=== PATIENT | male | born 1950 | race Caucasian/White ===

== ENCOUNTER 2016-07-31 09:53 | Inpatient (IN) | payer MEDICARE, OTHER ==
[~2016-07-31] VITALS: Ht 170.2 cm; Wt 86.6 kg
[2016-07-31] VITALS (7 sets, daily range): BP systolic 111–139; BP diastolic 68–82; PULSE 60–85; RESP 16–20; TEMP 96.1–98; O2SAT 96–100
[~2016-07-31 09:53] MED LIST: CYMB30CA PO; LEVE500 PO; NAPR220T95 PO
[2016-07-31] MEDS ORDERED: ACETAMINOPHEN/HYDROcodone 325 MG/10 MG TAB PO PRN ×2 (10:15)
[2016-07-31] MEDS ORDERED: RESP: ALBUTEROL 2.5 MG/3 ML NEB (PRN) NEB (10:15)
[2016-07-31] MEDS ORDERED: ACETAMINOPHEN 325 MG TAB PO PRN (10:15)
[2016-07-31] MEDS ORDERED: SODIUM CHLORIDE 0.9% FLUSH 5 ML FLUSH IVF PRN (10:15)
[2016-07-31] MEDS: SODIUM CHLOR 0.45% 1000 ML IV SCH (10:30)
[2016-07-31 10:39] LABS: BASOPHIL # 0.1 TH/MM3 (0-0.2); BASOPHIL % 0.8 % (0.0-2.0); EOSINOPHIL # 0.2 TH/MM3 (0-0.4); EOSINOPHIL % 2.2 % (0.0-4.0); HEMATOCRIT 45.5 % (39.0-51.0); HEMO FLAGS DIFF FINAL; LYMPH % 30.9 % (9.0-44.0); LYMPHOCYTE # 2.2 TH/MM3 (1.0-4.8); MEAN CELL VOLUME 93.8 FL (80.0-100.0); MEAN CORPUSCULAR HEMOGLOBIN 32.5 PG (27.0-34.0); MEAN CORPUSCULAR HGB CONC 34.6 % (32.0-36.0); MONO % 9.3 % (0.0-8.0); NEUT % 56.8 % (16.0-70.0); PLATELET COUNT 288 TH/MM3 (150-450); RED BLOOD COUNT 4.85 MIL/MM3 (4.50-5.90); RED CELL DISTRIBUTION WIDTH 13.1 % (11.6-17.2)
[2016-07-31 10:47] LABS: APTT (PATIENT) 31.7 SEC (24.3-30.1)
[2016-07-31 10:55] LABS: BICARBONATE 32.3 MEQ/L (21.0-32.0); POTASSIUM 4.1 MEQ/L (3.5-5.1)
--- NOTE | 2016-07-31 12:36 | PD.CONS ---
HPI Service [facility] Consult Requested By Dr. Avila Reason for Consult Medical Management Primary Care Physician Dr. Allen Diagnoses: History of Present Illness Mr. Stokes is a 65-year-old man who has a history of normal-pressure hydrocephalus. Pt. is not a good historian, information is obtained from his brother at [facility] and medical record. He underwent STOCK SHEETS CLEANER INSPECTOR shunt placement September 14, 2015. Indicates symptoms have persisted, consisting of short term memory loss, poor balance, urinary incontinence. He was admitted by Dr. Avila today and will be undergoing lumbar drain placement. Pt. also takes Keppra for questionable history of seizures. Brother states there was some tremors before and Dr. Guerrero put him on Keppra. He denies any recent episodes. Pt. is resting comfortably, has no complaints. Hospitalist services are requested for medical management, (Terrie Schwartz) Review of Systems Constitutional: DENIES: Diaphoretic episodes, Fatigue, Fever, Weight gain, Weight loss, Chills, Dizziness, Change in appetite, Night Sweats Endocrine: DENIES: Heat/cold intolerance, Polydipsia, Polyuria, Polyphagia Eyes: DENIES: Blurred vision, Diplopia, Eye inflammation, Eye pain, Vision loss , Photosensitivity, Double Vision Ears, nose, mouth, throat: DENIES: Tinnitus, Hearing loss, Vertigo, Nasal discharge, Oral lesions, Throat pain, Hoarseness, Ear Pain, Running Nose, Epistaxis, Sinus Pain, Toothache, Odynophagia Respiratory: DENIES: Apneas, Cough, Snoring, Wheezing, Hemoptysis, Sputum production, Shortness of breath Cardiovascular: DENIES: Chest pain, Palpitations, Syncope, Dyspnea on Exertion , PND, Lower Extremity Edema, Orthopnea, Claudication Gastrointestinal: DENIES: Abdominal pain, Black stools, Bloody stools, Constipation, Diarrhea, Nausea, Vomiting, Difficulty Swallowing, Anorexia Genitourinary: COMPLAINS OF: Urinary incontinence, DENIES: Sexual dysfunction , Urinary frequency, Urgency, Hematuria, Dysuria, Nocturia, Penile Discharge, Testicular Pain, Testicular Swelling Musculoskeletal: DENIES: Joint pain, Muscle aches, Stiffness, Joint Swelling, Back pain, Neck pain Integumentary: DENIES: Abnormal pigmentation, Nail changes, Pruritus, Rash Hematologic/lymphatic: DENIES: Bruising, Lymphadenopathy Immunologic/allergic: DENIES: Eczema, Urticaria Neurologic: COMPLAINS OF: Abnormal gait, Seizures, Tremor, Poor Balance, DENIES: Headache, Localized weakness, Paresthesias, Speech Problems Psychiatric: DENIES: Anxiety, Confusion, Mood changes, Depression, Hallucinations, Agitation, Suicidal Ideation, Homicidal Ideation, Delusions ( Terrie Schwartz) Past Family Social History Past Medical History NPH Urinary incontinence Questionable seizures, on Keppra Depression Anxiety Syncope Right foot drop Past Surgical History STOCK SHEETS CLEANER INSPECTOR shunt insertion 2015 Tonsillectomy Skin bx Reported Medications Reported Meds & Active Scripts Active Reported Cymbalta DR (Duloxetine HCl) 30 Mg Capdr 30 Mg PO DAILY Keppra (Levetiracetam) 500 Mg Tab 500 Mg PO BID (Terrie Schwartz) Allergies: Coded Allergies: Penicillin (Verified Allergy, Mild, 07/31/16) UNKNOWN REACTION IN CHILDHOOD Active Ordered Medications Inpatient Medications Acetaminophen (Tylenol) 650 mg Q4H PRN PO TEMPERATURE > 101.5 F; Start at 10:15 Acetaminophen/ Hydrocodone Bitart ([place] 10-325 Mg) 2 tab Q4H PRN PO PAIN SCALE 6 TO 10; Start 07/31/16 at 10:15 Albuterol Sulfate 2.5 mg 2.5 mg Q4HR NEB PRN NEB WHEEZING; Start 07/31/16 at 10 :15 Docusate Sodium (Colace) 100 mg BID PO ; Start 07/31/16 at 21:00 IV Flush (NS Flush) 2 ml BID IVF ; Start 07/31/16 at 21:00 Pantoprazole Sodium (Protonix) 40 mg DAILY PO ; Start 08/01/16 at 09:00 Sodium Chloride (1/2 NS 1000 ml Inj) 1,000 ml @ 30 mls/hr Q24H IV ; Start 07/31 at 10:30 Family History Father is 93, alive and well Mother Pos. hx DM in family Social History Lives with his father, brother Harrison assist with his medical needs. No ETOH, no smoking, no substance abuse. Uses cane and walker (Terrie Schwartz) Physical Exam Vital Signs Vital Signs Date Time Temp Pulse Resp B/P Pulse Ox O2 Delivery O2 Flow Rate FiO2 07/31/16 10:29 100 Room Air 07/31/16 10:14 98.0 85 20 131/77 100 Physical Exam GENERAL: This is a well-nourished, well-developed patient, in no apparent distress. SKIN: No rashes, ecchymoses or lesions. Cool and dry. HEAD: Atraumatic. Normocephalic. No temporal or scalp tenderness. EYES: Pupils equal round and reactive. Extraocular motions intact. No scleral icterus. No injection or drainage. ENT: Nose without bleeding, purulent drainage or septal hematoma. Throat without erythema, tonsillar hypertrophy or exudate. Uvula midline. Airway patent. NECK: Trachea midline. No JVD or lymphadenopathy. Supple, nontender, no meningeal signs. CARDIOVASCULAR: Regular rate and rhythm without murmurs, gallops, or rubs. RESPIRATORY: Clear to auscultation. Breath sounds equal bilaterally. No wheezes , rales, or rhonchi. GASTROINTESTINAL: Abdomen soft, non-tender, nondistended. No hepato-splenomegaly , or palpable masses. No guarding. MUSCULOSKELETAL: Extremities without clubbing, cyanosis, or edema. No joint tenderness, effusion, or edema noted. No calf tenderness. Negative Homans sign bilaterally. NEUROLOGICAL: Awake and alert, oriented x 3. Follows commands. Bilat lower extremities weaker, R > L, right foot drop noted. Speech clear. Laboratory Laboratory Tests Test 07/31/16 10:25 White Blood Count 7.0 Red Blood Count 4.85 Hemoglobin 15.8 Hematocrit 45.5 Mean Corpuscular Volume 93.8 Mean Corpuscular Hemoglobin 32.5 Mean Corpuscular Hemoglobin 34.6 Concent Red Cell Distribution Width 13.1 Platelet Count 288 Mean Platelet Volume 6.8 Neutrophils (%) (Auto) 56.8 Lymphocytes (%) (Auto) 30.9 Monocytes (%) (Auto) 9.3 Eosinophils (%) (Auto) 2.2 Basophils (%) (Auto) 0.8 Neutrophils # (Auto) 4.0 Lymphocytes # (Auto) 2.2 Monocytes # (Auto) 0.6 Eosinophils # (Auto) 0.2 Basophils # (Auto) 0.1 CBC Comment DIFF FINAL Differential Comment Prothrombin Time 11.0 Prothromb Time International 1.0 Ratio Activated Partial 31.7 Thromboplast Time Sodium Level 136 Potassium Level 4.1 Chloride Level 101 Carbon Dioxide Level 32.3 Anion Gap 3 Blood Urea Nitrogen 15 Creatinine 0.97 Estimat Glomerular Filtration 78 Rate Random Glucose 97 Calcium Level 9.1 (Terrie Schwartz) Result Diagram: 07/31/16 1025 07/31/16 1025 A/P Diagnosis: (1) Normal pressure hydrocephalus (2) STOCK SHEETS CLEANER INSPECTOR (ventriculoperitoneal) shunt status (3) Hx of seizure disorder (4) Anxiety and depression Assessment and Plan Thank you for this consultation, we will assist with medical management. 66 year old male with history of NPH, had STOCK SHEETS CLEANER INSPECTOR shunt 2015. Indicates symptoms have not improved, poor balance, urinary incontinence, short term memory loss. Admitted for lumbar drain per Dr. Avila in IR. -Pt. waiting to undergo procedure in IR -Neuro checks -Post op care per Dr. Avila Hx seizure disorder, has been on Keppra, no episodes recently. -Continue Keppra -Seizure precautions Anxiety and depression, stable -Continue home meds Home medications reviewed, initiated as indicated SCDs for DVT prophylaxis Plan of care discussed with pt and brother, attending, and RN. Further management of the patient will be dependent on the hospital course. This patient was seen by myself and Dr. Gutierrez, this consultation is written on his behalf. (Terrie Schwartz) Assessment and Plan evaluation done as above chart was reviewed this am meds labs and rad data was reviewed notes were reviewed plan of care fabián jung (Linda Gutierrez MD) Terrie Schwartz Jul 31, 2016 12:36 Linda Gutierrez MD Jul 31, 2016 22:28
[2016-07-31] MEDS ORDERED: ceFAZolin 2 GM PREMIX 50 ML ONE (12:40)
[2016-07-31] MEDS ORDERED: MIDAZOLAM HCL 2 MG/2 ML VIAL ONE (12:41)
[2016-07-31] MEDS ORDERED: IOHEXOL 300 MG/ML 50 ML BTL (for RAD DIAG) ONE (14:05)
[2016-07-31 15:13] LABS: GROSS BLOOD TUBE #1 0 (0); GROSS BLOOD TUBE #2 0 (0); SUPERNATE COLOR TUBE #1 CLEAR (CLEAR); SUPERNATE COLOR TUBE #2 CLEAR (CLEAR); VOLUME TUBE # 2 2.1 ML; WBC TUBE #2 14 /MM3 (0-10)
[2016-07-31 15:14] LABS: CSF LYMPHOCYTES 100 %; CSF NEUTROPHILS 0 %
--- NOTE | 2016-07-31 15:26 | HHI.HP ---
(Marly Castrejon) HPI Primary Care Physician Unknown History of Present Illness Mr. Stokes is a 65-year-old male who suffers from urine incontinence, memory loss and gait difficulties. He was initially seen in consultation at the request of Dr. Suarez for neurosurgical evaluation of hydrocephalus. Mr. Stokes has suffered from chronic progressive gait difficulties initially starting as a right foot drop years ago. He was evaluated by a neurosurgeon in [place] and underwent lumbar surgeries without any improvement in his gait. The patient also underwent multiple physical therapy previously without any significant improvement as well. An MRI had showed severe hydrocephalus. He had a ventriculoperitoneal shunt placed on 09/14/15. His shunt setting was slowly lowered. Unfortunately, Mr. Stokes was not showing any significant improvement in his gait, incontinence, and memory. He underwent a shuntogram on 01/25/16 with a patent shunt. His shunt setting was continued to be lowered down up to the lower setting possible still without any improvement in his symptoms. He presents today for a lumbar drain. (Marly Castrejon) Review of Systems Constitutional: DENIES: Fever, Chills Eyes: DENIES: Eye inflammation, Vision loss Respiratory: DENIES: Cough, Hemoptysis Gastrointestinal: DENIES: Abdominal pain, Nausea, Vomiting Genitourinary: COMPLAINS OF: Urinary incontinence Musculoskeletal: COMPLAINS OF: Back pain Neurologic: COMPLAINS OF: Abnormal gait, Localized weakness (right foot drop) Psychiatric: DENIES: Hallucinations (Marly Castrejon) Past Family Social History Allergies: Coded Allergies: Penicillin (Verified Allergy, Mild, 07/31/16) UNKNOWN REACTION IN CHILDHOOD Past Medical History Hydrocephalus Seizures Past Surgical History ventriculoperitoneal shunt lumbar fusion Reported Medications Cymbalta 30 mg daily Keppra 500 mg bid Active Ordered Medications Current Medications Medications (Trade) Dose Ordered Sig/Pete Route PRN Reason Start Time Stop Time Status Last Admin Dose Admin IV Flush (NS Flush) 2 ml UNSCH PRN IVF FLUSH AFTER USING IV ACCESS 07/31/16 10:15 IV Flush (NS Flush) 2 ml BID IVF 07/31/16 21:00 Docusate Sodium (Colace) 100 mg BID PO 07/31/16 21:00 Pantoprazole Sodium (Protonix) 40 mg DAILY PO 08/01/16 09:00 Acetaminophen/ Hydrocodone Bitart ([place] 10-325 Mg) 1 tab Q4H PRN PO PAIN SCALE 1 TO 5 07/31/16 10:15 Acetaminophen/ Hydrocodone Bitart ([place] 10-325 Mg) 2 tab Q4H PRN PO PAIN SCALE 6 TO 10 07/31/16 10:15 Acetaminophen 650 mg 650 mg Q4H PRN PO TEMPERATURE > 101.5 F 07/31/16 10:15 Sodium Chloride (1/2 NS 1000 ml Inj) 1,000 ml @ 30 mls/hr Q24H IV 07/31/16 10:30 07/31/16 10:30 Duloxetine HCl (Cymbalta Dr) 30 mg DAILY PO 08/01/16 09:00 Levetriacetam (Keppra) 500 mg BID PO 07/31/16 21:00 Family History noncontributory Social History no tobacco, etoh, or illicit drug use (Marly Castrejon) Physical Exam Vital Signs Vital Signs Date Time Temp Pulse Resp B/P Pulse Ox O2 Delivery O2 Flow Rate FiO2 07/31/16 14:55 73 16 131/68 97 07/31/16 14:25 69 16 139/73 96 07/31/16 14:10 96.6 60 18 129/82 96 07/31/16 10:29 100 Room Air 07/31/16 10:14 98.0 85 20 131/77 100 Physical Exam Mr. Stokes is comfortable, alert and no apparent distress. No dysarthria noted. Follows commands well. Cranial nerve: pupils equal, round, and reactive to light. EOMs are intact with normal convergence. Facial motor and sensory function are normal and symmetrical. Neck: No meningismus or nuchal rigidity. Motor: moving all major muscle groups of upper and lower extremities, he has a right foot drop Sensory examination is intact to light touch in both the upper and lower extremities, symmetrically. There is a bilateral plantar flexion response. There is no clonus. Extremities: no erythema or edema Respiratory: non-labored Cerebellar examination is intact to [id number] test. Laboratory Laboratory Tests Test 07/31/16 07/31/16 10:25 13:44 White Blood Count 7.0 Red Blood Count 4.85 Hemoglobin 15.8 Hematocrit 45.5 Mean Corpuscular Volume 93.8 Mean Corpuscular Hemoglobin 32.5 Mean Corpuscular Hemoglobin 34.6 Concent Red Cell Distribution Width 13.1 Platelet Count 288 Mean Platelet Volume 6.8 Neutrophils (%) (Auto) 56.8 Lymphocytes (%) (Auto) 30.9 Monocytes (%) (Auto) 9.3 Eosinophils (%) (Auto) 2.2 Basophils (%) (Auto) 0.8 Neutrophils # (Auto) 4.0 Lymphocytes # (Auto) 2.2 Monocytes # (Auto) 0.6 Eosinophils # (Auto) 0.2 Basophils # (Auto) 0.1 CBC Comment DIFF FINAL Differential Comment Prothrombin Time 11.0 Prothromb Time International 1.0 Ratio Activated Partial 31.7 Thromboplast Time Sodium Level 136 Potassium Level 4.1 Chloride Level 101 Carbon Dioxide Level 32.3 Anion Gap 3 Blood Urea Nitrogen 15 Creatinine 0.97 Estimat Glomerular Filtration 78 Rate Random Glucose 97 Calcium Level 9.1 CSF Volume (Tube 1) 2.0 CSF Supernatant Color (tube 1) CLEAR CSF Gross Blood (Tube 1) 0 CSF Volume (Tube 2) 2.1 CSF Supernatant Color (tube 2) CLEAR CSF Gross Blood (Tube 2) 0 CSF WBC (Tube 2) 14 CSF RBC (Tube 2) 8 CSF Neutrophils 0 CSF Lymphocytes 100 CSF Glucose 51 CSF Total Protein 196.8 Date/Time Procedure Status Source Growth 07/31/16 13:44 Gram Stain - Final Resulted Cerebral Spinal Fluid Lumbar Puncture 07/31/16 13:44 CSF Culture Resulted Cerebral Spinal Fluid Lumbar Puncture Pending (Marly Castrejon) Result Diagram: 07/31/16 1025 07/31/16 1025 Attending Statement I again reviewed with Divya his clinical and radiological findings. I reviewed his CT. Using his radiological studies, we have discussed the physiopathology and clinical symptomatology of normal pressure hydrocephalus with a triad of gait imbalance, memory loss or mild dementia, and urinary incontinence. Without treatment, there is a slow tendency to progression, and in some patients the symptomatology could be improved by drainage of cerebrospinal fluid (CSF). In some cases of suspected normal pressure hydrocephalus, potential improvement with a lower pressure permanent shunt can be tested by placement of a temporary lumbar drain and daily serial gait assessments. He would like to proceed with a trial of lumbar drain Respiratory. Aggressive pulmonary toilette, nasotracheal suction, and breathing treatments with nebulizers. PT and OT evaluation Renal. monitor closely urine output, BUN and creatinine Endocrine. Monitor serial Acu checks and SSI as needed in detail ID monitor for signs of infection Protonix for stress ulcer prophylaxis Lamberto hosozzy and SCD's for DVT prophylaxis (Venkat Avila MD) Marly Castrejon Jul 31, 2016 15:26 Venkat Avila MD Aug 01, 2016 16:49
--- NOTE | 2016-07-31 16:03 | PD.RAD ---
Post Procedure Progress Note Pre Procedure Diagnosis: (1) Normal pressure hydrocephalus Post Procedure Diagnosis: (1) Normal pressure hydrocephalus Procedure Date: Jul 31, 2016 Supervising Radiologist: Ken Reyes Proceduralist/Assist: RT Arabella(R) Anesthesia: Local, Conscious Sedation Plan of Activity Patient to Unit: ROPU Patient Condition: Fair See PACS Report for procedural detail/treatment Spinal Procedure Lumbar Drain T8 Fluid Description: Clear Findings: CSF pressure negligible Ken Reyes MD Jul 31, 2016 16:02
--- NOTE | 2016-07-31 16:27 | RADRPT ---
EXAM DATE/TIME: 07/31/2016 12:23 [facility] COMPARISON: No previous studies available for comparison. INDICATIONS : Patient with history of normal pressure hydrocephalus in need of lumbar drainage placement. MEDICAL HISTORY : CHF, Hydrocephalus, Seizures, Syncope, Unsteady gait, Incontinence SURGIAL HISTORY : Back surgery, Tonsillectomy, SEMICONDUCTOR PACKAGES PLATEMAKER shunt ENCOUNTER: Initial ACUITY: >1 year PAIN SCORE: LUMBAR PUNCTURE TIME: 1344 hours FLUORO TIME: 13.5 minutes SEDATION TIME: 30 minutes CONTRAST: 15 cc Omnipaque (iohexol) 300 LEVEL: Tip of lumbar drain was placed at T10 FLUID: 4 cc of clear CSF was collected and sent to the laboratory for analysis. MEDICATION(S): 1.) 2 mg midazolam (Versed) IV 2.) 100 mcg fentanyl (Sublimaze) IV Prophylactic antibiotics were administered with appropriate pre-procedure timing. Vancomycin within 2 hrs of procedure, Ancef (or alternative) within 1 hr of procedure. DEVICE(S): 1.) 5 Israeli lumbar drain catheter PROCEDURE : 1. Fluoroscopically guided lumbar drain placement. 2. Conscious sedation with continuous EKG and oximetry monitoring. The risks, benefits and alternatives to the procedure were explained and verbal and written consent w as obtained. The site was prepped in sterile fashion. Full sterile technique was used, including ca p, mask, sterile gloves and gown and a large sterile sheet. Hand hygiene and 2% chlorhexidine and/or betadine/alcohol prep was utilized per protocol for cutaneous antisepsis. The skin and subcutaneous tissues were infiltrated with local anesthetic solution. With fluoroscopic guidance the lumbar thecal sac was punctured with a 14 gauge Touhy needle initially at the L2-3 interspace level. There was no spontaneous return of spinal fluid. The lumbar drain cath eter would not advance into the spinal canal. Small volume contrast injection appeared to reveal epid ural spread. Repositioning of the needle failed to produce any spinal fluid return and the catheter c ould not be advanced at this level. Attention was then turned puncture at the L3-4 level. Similarly, despite what appeared to be good positioning of the Touhy needle fluoroscopically, there was no spont aneous return of spinal fluid. The catheter would not advance. Contrast injection revealed what appea red to be epidural spread of contrast. Further manipulation at this level was also unsuccessful. Eileen haque, the thecal sac was punctured at the L4-5 interspace level. There was no spontaneous return of sp inal fluid, however contrast injection did opacify the thecal sac. The catheter was gently advanced a nd taken up to the T8-9 interspace level. The catheter was sutured in place. CSF was identified retur brando from the catheter at the termination of the procedure. Conscious sedation was performed with the prescribed dosages and duration as above. The patient tole rated the procedure well and there were no complications. EKG and oximetry remained stable throughou t the procedure. The patient was sent to post anesthesia recovery in stable condition. CONCLUSION: Difficult lumbar drainage catheter placement as described. The catheter was ultimately placed success fully in without complication, however spinal fluid pressure appears to be negligible. A spinal fluid sample was sent for diagnostic testing as requested. Ken Reyes MD on July 31, 2016 at 16:19 Board Certified Radiologist. This report was verified electronically.
[2016-07-31] MEDS: DOCUSATE SODIUM 100 MG CAP PO SCH (21:00)
[2016-07-31] MEDS: SODIUM CHLORIDE 0.9% FLUSH 5 ML FLUSH IVF SCH (22:51)
[2016-07-31] MEDS: levETIRAcetam 500 MG TAB PO SCH (22:51)
[2016-08-01] VITALS: BP 127/70; PULSE 67; RESP 18; TEMP 97.8; O2SAT 100
[2016-08-01 04:00] VITALS: BP 138/85; PULSE 80; RESP 18; TEMP 97.6; O2SAT 95
[2016-08-01 08:00] VITALS: BP 125/77; PULSE 68; RESP 18; TEMP 96.9; O2SAT 93
[2016-08-01] MEDS: PANTOPRAZOLE SOD 40 MG DELAYED RELEASE TAB PO SCH (08:40)
[2016-08-01] MEDS: DOCUSATE SODIUM 100 MG CAP PO SCH ×2 (08:40→21:01)
[2016-08-01] MEDS: levETIRAcetam 500 MG TAB PO SCH ×2 (08:40→21:01)
[2016-08-01] MEDS: SODIUM CHLORIDE 0.9% FLUSH 5 ML FLUSH IVF SCH ×2 (08:40→21:02)
[2016-08-01] MEDS: DULoxetine HCl DR 30 MG CAP PO SCH (08:40)
[2016-08-01] MEDS: SODIUM CHLOR 0.45% 1000 ML IV SCH (08:49)
--- NOTE | 2016-08-01 11:18 | HHI.PR ---
Subjective Subjective Remarks forgetful oriented x 2 doesn't know if he had procedure feels tired no pain no fever caregiver at [facility] Review of Systems Constitutional Constitutional Remarks 12 point ROS completed, unreliable Vitals/Results Intake & Output 07/31/16 07/31/16 08/01/16 15:00 23:00 07:00 Intake Total 240 ml Output Total 10 ml 70 ml 80 ml Balance -10 ml -70 ml 160 ml Intake Oral 240 ml Output Drainage Total 10 ml 70 ml 80 ml # Voids 2 3 Vital Signs Vital Signs Date Time Temp Pulse Resp B/P Pulse Ox O2 Delivery O2 Flow Rate FiO2 08/01/16 08:00 96.9 68 18 125/77 93 08/01/16 04:00 97.6 80 18 138/85 95 08/01/16 00:00 97.8 67 18 127/70 100 07/31/16 20:00 97.4 65 18 128/71 100 07/31/16 17:11 96.1 77 20 122/71 96 07/31/16 15:25 73 18 111/71 96 07/31/16 14:55 73 16 131/68 97 07/31/16 14:25 69 16 139/73 96 07/31/16 14:10 96.6 60 18 129/82 96 CBC/BMP: 07/31/16 1025 07/31/16 1025 Lab Results Laboratory Tests Test 07/31/16 13:44 CSF Volume (Tube 1) 2.0 ML CSF Supernatant Color (tube 1) CLEAR CSF Gross Blood (Tube 1) 0 CSF Volume (Tube 2) 2.1 ML CSF Supernatant Color (tube 2) CLEAR CSF Gross Blood (Tube 2) 0 CSF WBC (Tube 2) 14 /MM3 CSF RBC (Tube 2) 8 /MM3 CSF Neutrophils 0 % CSF Lymphocytes 100 % CSF Glucose 51 MG/DL CSF Total Protein 196.8 MG/DL Microbiology Microbiology 07/31/16 Gram Stain - Final, Resulted 07/31/16 CSF Culture - Preliminary, Resulted NO GROWTH IN 24 HOURS. Physical Exam General General Appearance: Well Developed, Well Nourished, No Acute Distress, Comfortable Eyes Eye Exam: Pupils Equal, Pupils Reactive Ears & Nose Ears & Nose Exam: Nasal Mucosa [place] Throat Throat Exam: Oral Mucosa [place] & Moist Neck Neck Exam: Neck Supple, Trachea Midline Pulmonary Resp Exam: Breath Sounds Equal Cardiology CV Exam: Regular Gastrointestinal/Abdomen GI Exam: Soft, Non-Tender, Bowel Sounds Present, Non-Distended Musculoskeletal MS Exam: Joints Intact, Atrophy MS Remarks right foot drop Integumentary Skin Exam: Warm, Dry Extremeties Extremities Exam: No Edema, Pedal Pulses Palpable Neurologic Neuro Exam: Alert, Awake, Speech Clear, Moving All Extremities, No Focal Deficits Psychiatric Psych Exam: Appropriate Responses VTE Prophylaxis VTE Prophylaxis Device: SCDs Assessment/Plan Problem List: (1) Normal pressure hydrocephalus (2) GENERATOR MECHANIC (ventriculoperitoneal) shunt status (3) Anxiety and depression (4) Hx of seizure disorder (5) Seizure Assessment/Plan 66 year old male with history of NPH, had GENERATOR MECHANIC shunt 2015. Indicates symptoms have not improved, poor balance, urinary incontinence, short term memory loss. Admitted for lumbar drain per Dr. Avila in IR. -S/P lumbar drain 07/31, tolerated well -PT eval pending -Neuro checks -Post op care per Dr. Avila Hx seizure disorder, has been on Keppra, no episodes recently. -Continue Keppra -Seizure precautions Anxiety and depression, stable -Continued on home meds SCDs for DVT prophylaxis Possible discharge today, waiting for Dr. Avila CM for HH/PT/OT/ST D/W RN D/W Dr. Gutierrez D/W pt/caregiver This patient was seen by myself and Dr. Gutierrez, this note is written on his behalf. Terrie Schwartz Aug 01, 2016 11:18
--- NOTE | 2016-08-01 11:42 | HHI.FF ---
Face to Face Verification Diagnosis: (1) Hx of seizure disorder (2) Anxiety and depression (3) Normal pressure hydrocephalus (4) Seizure (5) FIELD ADMINISTRATIVE ASSISTANT (ventriculoperitoneal) shunt status Physical Therapy Order: Evaluate and Treat Occupational Therapy Order: Evaluate and Treat Speech Therapy Order: To Improve: Cognitive skills Home Health Nursing Order: Medical education Nursing assessment with vital signs Regulator Operator Order: To Evaluate: Support services I have seen patient Harrison Stokes on 08/01/16. My clinical findings support the need for the requested home health care services because: Deconditioned w/ increased weakness Limited ability to care for self Need for psychosocial assistance Impaired cognition/judgement High risk of falls I certify that my clinical findings support that this patient is homebound because: Impaired cognitive ability/safety Unsteady gait/balance Unsafe to leave home unassisted Need for psychosocial assistance Terrie Schwartz Aug 01, 2016 11:42
--- NOTE | 2016-08-01 13:56 | HHI.NSPN ---
(Marly Castrejon) The exam, history, and the medical decision-making described in the above note were completed with the assistance of the mid-level provider. I reviewed and agree with the findings presented. I attest that I had a [id number] encounter with the patient on the same day, and personally performed and documented my assessment and findings in the medical record. (Venkat Avila MD) Note Status Status: Progress Note (Marly Castrejon) Interval History Interval History Mr. Stokes is a 65-year-old male who suffers from urine incontinence, memory loss and gait difficulties. He was initially seen in consultation at the request of Dr. Suarez for neurosurgical evaluation of hydrocephalus. Mr. Stokes has suffered from chronic progressive gait difficulties initially starting as a right foot drop years ago. He was evaluated by a neurosurgeon in [place] and underwent lumbar surgeries without any improvement in his gait. The patient also underwent multiple physical therapy previously without any significant improvement as well. An MRI had showed severe hydrocephalus. He had a ventriculoperitoneal shunt placed on 09/14/15. His shunt setting was slowly lowered. Unfortunately, Mr. Stokes was not showing any significant improvement in his gait, incontinence, and memory. He underwent a shuntogram on 01/25/16 with a patent shunt. His shunt setting was continued to be lowered down up to the lower setting possible still without any improvement in his symptoms. He presents today for a lumbar drain. 08/01/16: ambulated with PT, and caregiver also present. denies headaches. caregiver feels no significant improvement, possibly taking longer strides? brother also reports he takes 1000 mg keppra bid at home, dosage changed in med rec. (Marly Castrejon) Labs, Micro, & Vital Signs Results Date Time Temp Pulse Resp B/P Pulse Ox O2 Delivery O2 Flow Rate FiO2 08/01/16 08:00 96.9 68 18 125/77 93 08/01/16 04:00 97.6 80 18 138/85 95 08/01/16 00:00 97.8 67 18 127/70 100 07/31/16 20:00 97.4 65 18 128/71 100 07/31/16 17:11 96.1 77 20 122/71 96 07/31/16 15:25 73 18 111/71 96 07/31/16 14:55 73 16 131/68 97 07/31/16 14:25 69 16 139/73 96 07/31/16 14:10 96.6 60 18 129/82 96 08/01/16 07:00 Intake Total 240 ml Output Total 160 ml Balance 80 ml Constitutional Vital Signs Date Time Temp Pulse Resp B/P Pulse Ox O2 Delivery O2 Flow Rate FiO2 08/01/16 08:00 96.9 68 18 125/77 93 08/01/16 04:00 97.6 80 18 138/85 95 08/01/16 00:00 97.8 67 18 127/70 100 07/31/16 20:00 97.4 65 18 128/71 100 07/31/16 17:11 96.1 77 20 122/71 96 07/31/16 15:25 73 18 111/71 96 07/31/16 14:55 73 16 131/68 97 07/31/16 14:25 69 16 139/73 96 07/31/16 14:10 96.6 60 18 129/82 96 08/01/16 07:00 Intake Total 240 ml Output Total 160 ml Balance 80 ml (Marly Castrejon) Review of Systems/Exam Exam Mr. Stokes is alert and oriented to person and place only, not to time, follows simple commands. Cranial nerve examination demonstrates the pupils to be equal, round, and reactive to light. Extra-ocular movements are intact. Facial motor are normal and symmetrical. Neck is soft and supple. Lumbar drain in place, CSF is clear Respiratory: clear Gait: ambulated with rolling walker, dragging right leg with foot drop and inversion of right foot (Marly Castrejon) Medications Current Medications Current Medications Medications (Trade) Dose Ordered Sig/Pete Route PRN Reason Start Time Stop Time Status Last Admin Dose Admin IV Flush (NS Flush) 2 ml UNSCH PRN IVF FLUSH AFTER USING IV ACCESS 07/31/16 10:15 IV Flush (NS Flush) 2 ml BID IVF 07/31/16 21:00 08/01/16 08:40 Docusate Sodium (Colace) 100 mg BID PO 07/31/16 21:00 08/01/16 08:40 Pantoprazole Sodium (Protonix) 40 mg DAILY PO 08/01/16 09:00 08/01/16 08:40 Acetaminophen/ Hydrocodone Bitart ([place] 10-325 Mg) 1 tab Q4H PRN PO PAIN SCALE 1 TO 5 07/31/16 10:15 Acetaminophen/ Hydrocodone Bitart ([place] 10-325 Mg) 2 tab Q4H PRN PO PAIN SCALE 6 TO 10 07/31/16 10:15 Acetaminophen 650 mg 650 mg Q4H PRN PO TEMPERATURE > 101.5 F 07/31/16 10:15 Sodium Chloride (1/2 NS 1000 ml Inj) 1,000 ml @ 30 mls/hr Q24H IV 07/31/16 10:30 07/31/16 10:30 Duloxetine HCl (Cymbalta Dr) 30 mg DAILY PO 08/01/16 09:00 08/01/16 08:40 Levetriacetam (Keppra) 500 mg BID PO 07/31/16 21:00 08/01/16 08:40 (Marly Castrejon) Medical Decision Making MDM Remarks 66 y/o male with hydrocephalus, with ventriculoperitoneal shunt currently at lowest setting without any improvement of gait, incontinence, or memory s/p placement of lumbar drain (Marly Castrejon) Plan Plan Remarks appreciate PT assistance, dw Brother on the phone, will continue CSF draining reevaluate gait tomorrow (Marly Castrejon) Marly Castrejon Aug 01, 2016 13:56 Venkat Avila MD Aug 05, 2016 18:23
[2016-08-01 16:00] VITALS: BP 123/77; PULSE 84; RESP 18; TEMP 97.2; O2SAT 93
[2016-08-01 20:00] VITALS: BP 122/73; PULSE 72; RESP 20; TEMP 96.2; O2SAT 94
[2016-08-02] VITALS: BP 117/70; PULSE 61; RESP 20; TEMP 97.7; O2SAT 96
[2016-08-02 06:05] VITALS: BP 121/72; PULSE 62; RESP 18; TEMP 96.4; O2SAT 94
[2016-08-02] MEDS: PANTOPRAZOLE SOD 40 MG DELAYED RELEASE TAB PO SCH (08:16)
[2016-08-02] MEDS: levETIRAcetam 500 MG TAB PO SCH ×2 (08:17→21:18)
[2016-08-02] MEDS: DOCUSATE SODIUM 100 MG CAP PO SCH ×2 (08:17→21:18)
[2016-08-02] MEDS: DULoxetine HCl DR 30 MG CAP PO SCH (08:17)
[2016-08-02] MEDS: SODIUM CHLORIDE 0.9% FLUSH 5 ML FLUSH IVF SCH ×2 (08:18→21:18)
[2016-08-02 08:19] VITALS: BP 125/78; PULSE 57; RESP 18; TEMP 96.3; O2SAT 94
[2016-08-02] MEDS: SODIUM CHLOR 0.45% 1000 ML IV SCH (08:24)
--- NOTE | 2016-08-02 10:18 | HHI.PR ---
Subjective Subjective Remarks forgetful oriented x 2 has no complaints per caregiver, still unsteady, not improving as much no fever caregiver at bsd Review of Systems Constitutional Constitutional Remarks 12 point ROS completed, unreliable Vitals/Results Intake & Output 08/01/16 08/01/16 08/02/16 15:00 23:00 07:00 Intake Total 480 ml 480 ml Output Total 10 ml 170 ml 410 ml Balance 470 ml 310 ml -410 ml Intake Oral 480 ml 480 ml Output Urine Total 100 ml 300 ml Drainage Total 10 ml 70 ml 110 ml # Voids 3 3 1 # Bowel Movements 0 0 Vital Signs Vital Signs Date Time Temp Pulse Resp B/P Pulse Ox O2 Delivery O2 Flow Rate FiO2 08/02/16 08:19 96.3 57 18 125/78 94 08/02/16 06:05 96.4 62 18 121/72 94 08/02/16 00:00 97.7 61 20 117/70 96 08/01/16 20:00 96.2 72 20 122/73 94 08/01/16 16:00 97.2 84 18 123/77 93 CBC/BMP: 07/31/16 1025 07/31/16 1025 Physical Exam General General Appearance: Well Developed, Well Nourished, No Acute Distress, Comfortable Eyes Eye Exam: Pupils Equal, Pupils Reactive Ears & Nose Ears & Nose Exam: Nasal Mucosa [place] Throat Throat Exam: Oral Mucosa [place] & Moist Neck Neck Exam: Neck Supple, Trachea Midline Pulmonary Resp Exam: Breath Sounds Equal Cardiology CV Exam: Regular Gastrointestinal/Abdomen GI Exam: Soft, Non-Tender, Bowel Sounds Present, Non-Distended Musculoskeletal MS Exam: Joints Intact, Atrophy MS Remarks right foot drop Integumentary Skin Exam: Warm, Dry Extremeties Extremities Exam: No Edema, Pedal Pulses Palpable Neurologic Neuro Exam: Alert, Awake, Speech Clear, Moving All Extremities, No Focal Deficits Psychiatric Psych Exam: Appropriate Responses VTE Prophylaxis VTE Prophylaxis Device: SCDs Assessment/Plan Problem List: (1) Normal pressure hydrocephalus (2) WINE AND SPIRITS CLERK (ventriculoperitoneal) shunt status (3) Anxiety and depression (4) Hx of seizure disorder (5) Seizure Assessment/Plan 66 year old male with history of NPH, had WINE AND SPIRITS CLERK shunt 2015. Indicates symptoms have not improved, poor balance, urinary incontinence, short term memory loss. Admitted for lumbar drain per Dr. Avila in IR. -S/P lumbar drain 07/31 -PT daily -Neuro checks -Post op care per Dr. Avila -Gait not improving, continue as above Hx seizure disorder, has been on Keppra, no episodes recently. -Continue Keppra -Seizure precautions Anxiety and depression, stable -Continued on home meds SCDs for DVT prophylaxis CM for HH/PT/OT/ST Continue with present tx D/W RN D/W Dr. Gutierrez D/W pt/caregiver This patient was seen by myself and Dr. Gutierrez, this note is written on his behalf. Terrie Schwartz Aug 02, 2016 10:18 Terrie Schwartz Aug 02, 2016 10:18
--- NOTE | 2016-08-02 11:57 | HHI.NSPN ---
(Marly Castrejon) Note Status Status: Progress Note (Marly Castrejon) Interval History Interval History Mr. Stokes is a 65-year-old male who suffers from urine incontinence, memory loss and gait difficulties. He was initially seen in consultation at the request of Dr. Suarez for neurosurgical evaluation of hydrocephalus. Mr. Stokes has suffered from chronic progressive gait difficulties initially starting as a right foot drop years ago. He was evaluated by a neurosurgeon in [place] and underwent lumbar surgeries without any improvement in his gait. The patient also underwent multiple physical therapy previously without any significant improvement as well. An MRI had showed severe hydrocephalus. He had a ventriculoperitoneal shunt placed on 09/14/15. His shunt setting was slowly lowered. Unfortunately, Mr. Stokes was not showing any significant improvement in his gait, incontinence, and memory. He underwent a shuntogram on 01/25/16 with a patent shunt. His shunt setting was continued to be lowered down up to the lower setting possible still without any improvement in his symptoms. He presents today for a lumbar drain. 08/01/16: ambulated with PT, and caregiver also present. denies headaches. caregiver feels no significant improvement, possibly taking longer strides? brother also reports he takes 1000 mg keppra bid at home, dosage changed in med rec. 08/02: ambulated again but today with use of cane. continues to drag left leg with foot drop and inversion. pt does not feel improved. (Marly Castrejon) Labs, Micro, & Vital Signs Results Date Time Temp Pulse Resp B/P Pulse Ox O2 Delivery O2 Flow Rate FiO2 08/02/16 08:19 96.3 57 18 125/78 94 08/02/16 06:05 96.4 62 18 121/72 94 08/02/16 00:00 97.7 61 20 117/70 96 08/01/16 20:00 96.2 72 20 122/73 94 08/01/16 16:00 97.2 84 18 123/77 93 08/02/16 07:00 Intake Total 960 ml Output Total 590 ml Balance 370 ml Constitutional Vital Signs Date Time Temp Pulse Resp B/P Pulse Ox O2 Delivery O2 Flow Rate FiO2 08/02/16 08:19 96.3 57 18 125/78 94 08/02/16 06:05 96.4 62 18 121/72 94 08/02/16 00:00 97.7 61 20 117/70 96 08/01/16 20:00 96.2 72 20 122/73 94 08/01/16 16:00 97.2 84 18 123/77 93 08/02/16 07:00 Intake Total 960 ml Output Total 590 ml Balance 370 ml (Marly Castrejon) Review of Systems/Exam Exam Mr. Stokes is alert and oriented to person and place only, not to time, follows simple commands. Cranial nerve examination demonstrates the pupils to be equal, round, and reactive to light. Extra-ocular movements are intact. Facial motor are normal and symmetrical. Neck is soft and supple. Lumbar drain in place, CSF is clear Respiratory: clear Gait: ambulated with rolling walker, dragging right leg with foot drop and inversion of right foot (Marly Castrejon) Medications Current Medications Current Medications Medications (Trade) Dose Ordered Sig/Pete Route PRN Reason Start Time Stop Time Status Last Admin Dose Admin IV Flush (NS Flush) 2 ml UNSCH PRN IVF FLUSH AFTER USING IV ACCESS 07/31/16 10:15 IV Flush (NS Flush) 2 ml BID IVF 07/31/16 21:00 08/02/16 08:18 Docusate Sodium (Colace) 100 mg BID PO 07/31/16 21:00 08/01/16 21:01 Pantoprazole Sodium (Protonix) 40 mg DAILY PO 08/01/16 09:00 08/02/16 08:16 Acetaminophen/ Hydrocodone Bitart ([place] 10-325 Mg) 1 tab Q4H PRN PO PAIN SCALE 1 TO 5 07/31/16 10:15 Acetaminophen/ Hydrocodone Bitart ([place] 10-325 Mg) 2 tab Q4H PRN PO PAIN SCALE 6 TO 10 07/31/16 10:15 Acetaminophen 650 mg 650 mg Q4H PRN PO TEMPERATURE > 101.5 F 07/31/16 10:15 08/01/16 17:45 Sodium Chloride (1/2 NS 1000 ml Inj) 1,000 ml @ 30 mls/hr Q24H IV 07/31/16 10:30 07/31/16 10:30 Duloxetine HCl (Cymbalta Dr) 30 mg DAILY PO 08/01/16 09:00 08/02/16 08:17 Levetriacetam (Keppra) 1,000 mg BID PO 08/01/16 21:00 08/02/16 08:17 (Marly Castrejon) Medical Decision Making MDM Remarks 66 y/o male with hydrocephalus, with ventriculoperitoneal shunt currently at lowest setting without any improvement of gait, incontinence, or memory s/p placement of lumbar drain (Marly Castrejon) Plan Plan Remarks gait reevaluated with physical therapist, no significant improvement seen Brother also witnessed, obtain f/u CT Head and assess size of ventricles, will continue CSF draining for now, (Marly Castrejon) Attending Statement The exam, history, and the medical decision-making described in the above note were completed with the assistance of the mid-level provider. I reviewed and agree with the findings presented. I attest that I had a [id number] encounter with the patient on the same day, and personally performed and documented my assessment and findings in the medical record. (Venkat Avila MD) Marly Castrejon Aug 02, 2016 11:57 Venkat Avila MD Aug 05, 2016 18:26
[2016-08-02 12:14] VITALS: BP 113/75; PULSE 60; RESP 17; TEMP 96.6; O2SAT 94
--- NOTE | 2016-08-02 16:18 | RADRPT ---
EXAM DATE/TIME: 08/02/2016 15:48 [facility] COMPARISON: CT BRAIN W/O CONTRAST, September 15, 2015, 4:12. INDICATIONS : RADIATION DOSE: 51.62 CTDIvol (mGy) MEDICAL HISTORY : Seizures. Carcinoma, squamous cell. Hydrocephalus. SURGICAL HISTORY : UPHOLSTERY ESTIMATOR shunt. ENCOUNTER: Initial ACUITY: 2 days PAIN SCALE: 0/10 LOCATION: cranial TECHNIQUE: Multiple contiguous axial images were obtained of the head. Using automated exposure control and adj ustment of the mA and/or kV according to patient size, radiation dose was kept as low as reasonably a chievable to obtain optimal diagnostic quality images. FINDINGS: Massive dilatation of the ventricular system is unchanged compared to the prior study. A right fronta l nature colostomy tube remains in place. The sulcal pattern along the cerebral convexities is still evident without complete gyral compression . Brainstem and cerebellum are stable. CONCLUSION: Severe hydrocephalus unchanged compared to prior studies. Right frontal ventriculoperitoneal shunt noted in place. No evidence of acute process. Tj Lucia MD on August 02, 2016 at 16:14 Board Certified Radiologist. This report was verified electronically.
[2016-08-02 16:40] VITALS: BP 124/76; PULSE 61; RESP 18; TEMP 97; O2SAT 96
[2016-08-02 20:00] VITALS: BP 119/75; PULSE 57; RESP 20; TEMP 96.5; O2SAT 95
[2016-08-03] VITALS: BP 123/79; PULSE 62; RESP 20; TEMP 96.8; O2SAT 95
[2016-08-03 05:52] VITALS: BP 113/74; PULSE 61; RESP 18; TEMP 96.2; O2SAT 97
[2016-08-03 08:11] VITALS: BP 115/77; PULSE 60; RESP 18; TEMP 96.5; O2SAT 94
[2016-08-03] MEDS: DOCUSATE SODIUM 100 MG CAP PO SCH (09:00)
[2016-08-03] MEDS: PANTOPRAZOLE SOD 40 MG DELAYED RELEASE TAB PO SCH (09:04)
[2016-08-03] MEDS: DULoxetine HCl DR 30 MG CAP PO SCH (09:04)
[2016-08-03] MEDS: levETIRAcetam 500 MG TAB PO SCH (09:05)
[2016-08-03] MEDS: SODIUM CHLORIDE 0.9% FLUSH 5 ML FLUSH IVF SCH (09:05)
--- NOTE | 2016-08-03 09:42 | HHI.PR ---
Subjective Subjective Remarks oriented to hospital, believes he's in [place], knows year thinks he's here for platelet transfusion no focal deficits no complaints no cp no sob no family at bsd lumbar drain in place, draining Review of Systems Constitutional Constitutional Remarks 12 point ROS completed, unreliable Vitals/Results Intake & Output 08/02/16 08/02/16 08/03/16 15:00 23:00 07:00 Intake Total 720 ml 480 ml Output Total 250 ml 400 ml Balance 720 ml 230 ml -400 ml Intake Oral 720 ml 480 ml Output Urine Total 250 ml 400 ml # Voids 1 3 # Bowel Movements 1 0 0 Vital Signs Vital Signs Date Time Temp Pulse Resp B/P Pulse Ox O2 Delivery O2 Flow Rate FiO2 08/03/16 08:11 96.5 60 18 115/77 94 08/03/16 05:52 96.2 61 18 113/74 97 08/03/16 00:00 96.8 62 20 123/79 95 08/02/16 20:00 96.5 57 20 119/75 95 08/02/16 16:40 97.0 61 18 124/76 96 08/02/16 12:14 96.6 60 17 113/75 94 CBC/BMP: 07/31/16 1025 07/31/16 1025 Physical Exam General General Appearance: Well Developed, Well Nourished, No Acute Distress, Comfortable Eyes Eye Exam: Pupils Equal, Pupils Reactive Ears & Nose Ears & Nose Exam: Nasal Mucosa [place] Throat Throat Exam: Oral Mucosa [place] & Moist Neck Neck Exam: Neck Supple, Trachea Midline Pulmonary Resp Exam: Breath Sounds Equal Cardiology CV Exam: Regular Gastrointestinal/Abdomen GI Exam: Soft, Non-Tender, Bowel Sounds Present, Non-Distended Musculoskeletal MS Exam: Joints Intact, Atrophy MS Remarks right foot drop Integumentary Skin Exam: Warm, Dry Extremeties Extremities Exam: No Edema, Pedal Pulses Palpable Neurologic Neuro Exam: Alert, Awake, Speech Clear, Moving All Extremities, No Focal Deficits Psychiatric Psych Exam: Appropriate Responses VTE Prophylaxis VTE Prophylaxis Device: SCDs Assessment/Plan Problem List: (1) Normal pressure hydrocephalus (2) OFFICE MACHINE INSTALLER (ventriculoperitoneal) shunt status (3) Anxiety and depression (4) Hx of seizure disorder (5) Seizure Assessment/Plan 66 year old male with history of NPH, had OFFICE MACHINE INSTALLER shunt 2015. Indicates symptoms have not improved, poor balance, urinary incontinence, short term memory loss. Admitted for lumbar drain per Dr. Avila in IR. -S/P lumbar drain 07/31 -PT daily -Neuro checks -Post op care per Dr. Avila -little improvement, repeat CT head 08/02-results noted (severe hydrocephalus, unchanged) Hx seizure disorder, has been on Keppra, no episodes recently. -Continue Keppra -Seizure precautions Anxiety and depression, stable -Continued on home meds SCDs for DVT prophylaxis CM for HH/PT/OT/ST Continue with present tx DC planning pending Dr. Pal's recommendations D/W RN D/W Dr. Gutierrez D/W pt This patient was seen by myself and Dr. Gutierrez, this note is written on his behalf. Terrie Schwartz Aug 03, 2016 09:42
--- NOTE | 2016-08-03 10:34 | HHI.NSPN ---
(Marly Castrejon) Note Status Status: Progress Note (Marly Castrejon) Interval History Interval History Mr. Stokes is a 65-year-old male who suffers from urine incontinence, memory loss and gait difficulties. He was initially seen in consultation at the request of Dr. Suarez for neurosurgical evaluation of hydrocephalus. Mr. Stokes has suffered from chronic progressive gait difficulties initially starting as a right foot drop years ago. He was evaluated by a neurosurgeon in [place] and underwent lumbar surgeries without any improvement in his gait. The patient also underwent multiple physical therapy previously without any significant improvement as well. An MRI had showed severe hydrocephalus. He had a ventriculoperitoneal shunt placed on 09/14/15. His shunt setting was slowly lowered. Unfortunately, Mr. Stokes was not showing any significant improvement in his gait, incontinence, and memory. He underwent a shuntogram on 01/25/16 with a patent shunt. His shunt setting was continued to be lowered down up to the lower setting possible still without any improvement in his symptoms. He presents today for a lumbar drain. 08/01/16: ambulated with PT, and caregiver also present. denies headaches. caregiver feels no significant improvement, possibly taking longer strides? brother also reports he takes 1000 mg keppra bid at home, dosage changed in med rec. 08/02: ambulated again but today with use of cane. continues to drag left leg with foot drop and inversion. pt does not feel improved. 08/03: brother in room, dw him regarding results of CT Head yesterday. (Marly Castrejon) Labs, Micro, & Vital Signs Results Date Time Temp Pulse Resp B/P Pulse Ox O2 Delivery O2 Flow Rate FiO2 08/03/16 08:11 96.5 60 18 115/77 94 08/03/16 05:52 96.2 61 18 113/74 97 08/03/16 00:00 96.8 62 20 123/79 95 08/02/16 20:00 96.5 57 20 119/75 95 08/02/16 16:40 97.0 61 18 124/76 96 08/02/16 12:14 96.6 60 17 113/75 94 08/03/16 07:00 Intake Total 1200 ml Output Total 650 ml Balance 550 ml Constitutional Vital Signs Date Time Temp Pulse Resp B/P Pulse Ox O2 Delivery O2 Flow Rate FiO2 08/03/16 08:11 96.5 60 18 115/77 94 08/03/16 05:52 96.2 61 18 113/74 97 08/03/16 00:00 96.8 62 20 123/79 95 08/02/16 20:00 96.5 57 20 119/75 95 08/02/16 16:40 97.0 61 18 124/76 96 08/02/16 12:14 96.6 60 17 113/75 94 08/03/16 07:00 Intake Total 1200 ml Output Total 650 ml Balance 550 ml (Marly Castrejon) Review of Systems/Exam Exam Mr. Stokes is alert and oriented to person and place only, not to time, follows simple commands. Cranial nerve examination demonstrates the pupils to be equal, round, and reactive to light. Extra-ocular movements are intact. Facial motor are normal and symmetrical. Neck is soft and supple. Lumbar drain in place, CSF is clear Respiratory: clear Gait: ambulated with rolling walker, dragging right leg with foot drop and inversion of right foot (Marly Castrejon) Medications Current Medications Current Medications Medications (Trade) Dose Ordered Sig/Pete Route PRN Reason Start Time Stop Time Status Last Admin Dose Admin IV Flush (NS Flush) 2 ml UNSCH PRN IVF FLUSH AFTER USING IV ACCESS 07/31/16 10:15 IV Flush (NS Flush) 2 ml BID IVF 07/31/16 21:00 08/03/16 09:05 Docusate Sodium (Colace) 100 mg BID PO 07/31/16 21:00 08/02/16 21:18 Pantoprazole Sodium (Protonix) 40 mg DAILY PO 08/01/16 09:00 08/03/16 09:04 Acetaminophen/ Hydrocodone Bitart ([place] 10-325 Mg) 1 tab Q4H PRN PO PAIN SCALE 1 TO 5 07/31/16 10:15 Acetaminophen/ Hydrocodone Bitart ([place] 10-325 Mg) 2 tab Q4H PRN PO PAIN SCALE 6 TO 10 07/31/16 10:15 Acetaminophen 650 mg 650 mg Q4H PRN PO TEMPERATURE > 101.5 F 07/31/16 10:15 08/01/16 17:45 Sodium Chloride (1/2 NS 1000 ml Inj) 1,000 ml @ 30 mls/hr Q24H IV 07/31/16 10:30 07/31/16 10:30 Duloxetine HCl (Cymbalta Dr) 30 mg DAILY PO 08/01/16 09:00 08/03/16 09:04 Levetriacetam (Keppra) 1,000 mg BID PO 08/01/16 21:00 08/03/16 09:05 (Marly Castrejon) Medical Decision Making MDM Remarks 66 y/o male with hydrocephalus, with ventriculoperitoneal shunt currently at lowest setting without any improvement of gait, incontinence, or memory s/p placement of lumbar drain, CSF draining without changes to ventricle size or NPH symptoms (Marly Castrejon) Plan Plan Remarks dw brother in detail, dc lumbar drain, keep flat per protocol dc home today (Marly Castrejon) Attending Statement The exam, history, and the medical decision-making described in the above note were completed with the assistance of the mid-level provider. I reviewed and agree with the findings presented. I attest that I had a [id number] encounter with the patient on the same day, and personally performed and documented my assessment and findings in the medical record. (Venkat Avila MD) Marly Castrejon Aug 03, 2016 10:34 Venkat Avila MD Aug 05, 2016 18:22
[2016-08-03] MEDS ORDERED: LEVE500 PO (10:38)
--- NOTE | 2016-08-03 10:39 | HHI.DCPOC ---
Discharge Care Plan Diagnosis: (1) Normal pressure hydrocephalus Goals to Promote Your Health * To prevent worsening of your condition and complications * To maintain your health at the optimal level Directions to Meet Your Goals Take your medications as prescribed Follow your dietary instruction Follow activity as directed Keep your appointments as scheduled Take your immunizations and boosters as scheduled If your symptoms worsen call your PCP, if no PCP go to Urgent Care Center or Emergency Room Smoking is Dangerous to Your Health. Avoid second hand smoke Call the 24-hour hour crisis hotline for domestic abuse at Marly Castrejon Aug 03, 2016 10:38
--- NOTE | 2016-08-03 10:39 | HHI.DS ---
Discharge Summary Admission Date Jul 31, 2016 at 16:22 Discharge Date: Aug 03, 2016 Admitting Diagnosis NPH, s/p placement of lumbar drain (1) Normal pressure hydrocephalus (2) MEDIA AID (ventriculoperitoneal) shunt status (3) Anxiety and depression (4) Hx of seizure disorder (5) Seizure Brief History Mr. Stokes is a 65-year-old male who suffers from urine incontinence, memory loss and gait difficulties. He was initially seen in consultation at the request of Dr. Suarez for neurosurgical evaluation of hydrocephalus. Mr. Stokes has suffered from chronic progressive gait difficulties initially starting as a right foot drop years ago. He was evaluated by a neurosurgeon in [place] and underwent lumbar surgeries without any improvement in his gait. The patient also underwent multiple physical therapy previously without any significant improvement as well. An MRI had showed severe hydrocephalus. He had a ventriculoperitoneal shunt placed on 09/14/15. His shunt setting was slowly lowered. Unfortunately, Mr. Stokes was not showing any significant improvement in his gait, incontinence, and memory. He underwent a shuntogram on 01/25/16 with a patent shunt. His shunt setting was continued to be lowered down up to the lower setting possible still without any improvement in his symptoms. He presents today for a lumbar drain. CBC/BMP: 07/31/16 1025 07/31/16 1025 Significant Findings Laboratory Tests Test 07/31/16 13:44 CSF WBC (Tube 2) 14 /MM3 (0-10) CSF RBC (Tube 2) 8 /MM3 (NONE) CSF Total Protein 196.8 MG/DL (15.0-45.0) Hospital Course Mr. Berg underwent placement of lumbar drain on 07/31/16. His CSF was strain per protocol. He underwent evaluation with physical therapy. Unfortunately his gait did not improve following CSF drainage through the lumbar drain. A repeat CT of the head following CSF draining showed no changes in his ventriculomegaly. Mr. Stokes remained in stable conditions. His lumbar drain was removed and he was kept flat per protocol. He was discharged home in stable conditions. Pt Condition on Discharge: Stable Discharge Disposition: Discharge Home Discharge Instructions DIET: Follow Instructions for: Heart Healthy Diet ACTIVITIES You can perform: Weight Bearing As [place] ADDITIONAL Activity Instructio: Avoid falls, use drug safety assistant or assistive devices as needed when ambulating. Changed Medications: Levetiracetam (Keppra) 500 Mg Tab 1000 MG PO BID Control Seizures #60 Ref 0 TAB (Changed from: 500 MG) Continued Medications: Duloxetine (Kaz ARANDA) 30 Mg Capdr 30 MG PO DAILY #30 Ref 0 Marly Kendrick Aug 03, 2016 10:39
[2016-08-03 11:54] VITALS: BP 111/74; PULSE 89; RESP 18; TEMP 97.5; O2SAT 95
== END 2016-08-03 15:03 | disposition home or self-care (01) | DRG 57 ==
LOC: HROP 09:53 → HRIP 09:54 → HROP 16:21 → N05B 16:22
PROVIDERS: ADMIT Neurological Surgery; ATTEND Neurological Surgery
PROC: 009U30Z Drainage of Spinal Canal with Drainage Device, Percutaneous Approach (ICD-10-PCS; principal; 2016-07-31)
DX: G91.2 (Idiopathic) normal pressure hydrocephalus (principal); F32.9 Major depressive disorder, single episode, unspecified; G40.909 Epilepsy, unspecified, not intractable, without status epilepticus; M21.371 Foot drop, right foot; R26.2 Difficulty in walking, not elsewhere classified; F41.9 Anxiety disorder, unspecified; Z98.2 Presence of cerebrospinal fluid drainage device
CPT/HCPCS: 62270; 63741; 70450; 77003; 80048; 82945; 84157; 85025; 85610; 85730; 87070; 87205; 89051; 94150; 99152; 99153; J0690; J2250; J3010; Q9967